=== PATIENT | female | born 1990 | race Caucasian/White ===

== ENCOUNTER 2018-06-23 22:32 | Emergency (ER) | payer OTHER ==
[~2018-06-23] VITALS: Ht 165.1 cm; Wt 90.0 kg
[2018-06-24] MEDS ORDERED: ACETAMINOPHEN 325MG TABLET PO ONE (01:45)
[2018-06-24 02:10] LABS: CLARITY URINE TURBID (CLEAR); COLOR URINE YELLOW (YELLOW); KETONES URINE NEGATIVE (NEGATIVE); LEUKOCYTE ESTERASE URINE TRACE (NEGATIVE); NITRITE URINE NEGATIVE (NEGATIVE); OCCULT BLOOD URINE NEGATIVE (NEGATIVE); PROTEIN URINE NEGATIVE (NEGATIVE); SPECIFIC GRAVITY URINE 1.022 (1.005-1.030); UROBILINOGEN URINE 0.2 E.U./dL (0.2-1.0)
[2018-06-24] MEDS ORDERED: ONDANSETRON 4MG ODT PO ONE (03:15)
[2018-06-24 03:19] VITALS: BP 126/78
== END 2018-06-24 03:19 | disposition home or self-care (01) ==
LOC: ER 22:32
DX: R10.9 Unspecified abdominal pain (principal); Z98.890 Other specified postprocedural states
CPT/HCPCS: 72170; 81025; 99284